=== PATIENT | female | born 1985 | race Caucasian/White ===

== ENCOUNTER → 2022-06-09 10:19 | Outpatient (CLI) | payer OTHER, SELFPAY ==
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
[2022-06-09 13:17] LABS: Basophils % 0.7 % (0.1-2.0); Eosinophils # 0.1 K/mm3 (0.0-0.4); Eosinophils % 1.8 % (0.1-12.0); Hematocrit 43.8 % (37.0-47.0); Hemoglobin 14.7 g/dL (12.2-16.2); Lymphocytes # 1.3 K/mm3 (0.7-4.5); Lymphocytes % 22.7 % (10-50); Mean Corpuscular HGB Conc 33.5 g/dL (31.8-35.4); Mean Corpuscular Hemoglobin 30.6 pg (27.0-31.2); Mean Corpuscular Volume 91.4 fl (81-99); Mean Platelet Volume 8.4 fl (7.4-10.4); Monocytes # 0.2 K/mm3 (0.1-1.0); Monocytes % 2.8 % (1.7-9.3); Platelet Count 262 K/mm3 (142-424); Red Blood Count 4.79 M/mm3 (4.20-5.40); Red Cell Distribution Width 12.4 % (11.5-17.5); White Blood Count 5.5 K/mm3 (4.8-10.8)
[2022-06-09 13:59] LABS: Alanine Aminotransferase 17 U/L (12-78); Albumin Level 4.4 g/dl (3.5-5.0); Albumin/Globulin Ratio 1.7 (1.1-1.8); Alkaline Phosphatase 57 U/L (38-126); Anion Gap 17.1 mEq/L (5-15); Aspartate Amino Transferase 25 U/L (14-36); Bilirubin,Total 0.4 mg/dl (0.2-1.3); Blood Urea Nitrogen 18 mg/dl (7-17); Calcium 9.5 mg/dl (8.4-10.2); Carbon Dioxide 23 mmol/L (22.0-30.0); Chloride 103 mmol/L (98-107); Estimated Glomerular Filt Rate 70 ml/min (>60); GFR (African American) 85 ML/MIN (>60); Globulin 2.6 g/dL (1.3-3.2); Glucose 107 mg/dl (74-100); Potassium 4.1 mmoL/L (3.5-5.1); Sodium 139 mmol/L (136-145)
[2022-06-09 14:30] LABS: Thyroid Stimulating Hormone 0.56 uIU/mL (0.465-4.68)
[2022-06-09 15:15] LABS: Folate > 20.00 ng/mL; Vitamin B12 > 1000 pg/mL (239-931)
== END ==
PROVIDERS: PCP Nurse Practitioner; Visit Provider Nurse Practitioner Family
DX: R51.9 Headache, unspecified (principal); F39 Unspecified mood [affective] disorder; Z87.828 Personal history of other (healed) physical injury and trauma
CPT/HCPCS: 36415; 70551; 72052; 80053; 82607; 82746; 84443; 85025

== ENCOUNTER 2022-06-24 15:30 | Outpatient (RCR) | payer OTHER, SELFPAY ==
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
== END 2022-06-24 15:35 | disposition home or self-care (01) ==
LOC: PT 15:30
PROVIDERS: PCP Nurse Practitioner; Visit Provider Nurse Practitioner Family
DX: R51.9 Headache, unspecified (principal); Z87.828 Personal history of other (healed) physical injury and trauma
CPT/HCPCS: 20560; 97010; 97014; 97035; 97110; 97140; 97163; G0283

== ENCOUNTER 2022-10-12 13:40 | Day surgery (SDC) | payer OTHER, SELFPAY ==
[2022-10-12] VITALS (8 sets, daily range): BP systolic 116–153; BP diastolic 80–101; PULSE 49–75; RESP 15–20; TEMP 36.4–36.9; O2SAT 97–100; BMI 21.7
--- NOTE | 2022-10-12 13:43 | HMH.EDGENADL ---
Discharge Plan Disposition Patient Disposition: Admitted As Inpatient Prescriptions Prescriptions: No Action bupropion HCl [Wellbutrin XL] 300 mg tablet extended release 24 hr 300 mg PO DAILY Clinical Impressions Clinical Impression: Foreign body in foot, Penetrating foot wound Instructions Patient Instructions: DI for Skin Abscess Discharge ED Provider: Mallory Hernandez General Adult HPI General Chief complaint: Skin/Abscess/Foreign Body Stated complaint: FB in foot Time Seen by Provider: 10/12/22 13:43 History of Present Illness HPI narrative: Patient is a 37-year-old female presenting today with a nail that penetrated through her great toe on the left foot. She states that she was walking in a shed and accidentally stepped on the nail which went through her rubber soled shoe and through her foot through and through. Unknown known tetanus status she tried very hard to pull the nail out herself and was unsuccessful. Denies any ongoing bleeding or loss of sensation in that toe. Related Data Home Medications Medication Instructions Recorded Confirmed bupropion HCl 300 mg 24 hr tablet, 300 mg PO DAILY Mood 05/25/22 10/12/22 extended release (Wellbutrin XL) Allergies Allergy/AdvReac Type Severity Reaction Status Date / Time No Known Allergies Allergy Verified 07/28/22 10:30 PFS PFS Disclaimer: The information contained in this section may have been updated after the patient was seen, as this information can be updated by other users. Surgical History H/O tubal ligation Family History Other Cancer FHx: mental illness Heart attack Substance abuse Social History Smoking Status: Current every day smoker alcohol intake: current substance use type: former substance user current occupational status: unemployed Travel in the last 8 weeks: Inside the [place] housing: house marital status: single ROS Obtained: Yes All systems reviewed & no additional complaints except as documented Physical Exam General General appearance: alert Respiratory Respiratory exam: Present normal lung sounds bilaterally and respiratory distress; Absent wheezes, stridor or accessory muscle use Cardiovascular Cardiovascular exam: Present regular rate; Absent irregular rhythm Abdominal Exam Abdominal exam: Present soft; Absent distention Extremities Exam Extremities exam: Present other (Left foot there is a nail that is penetrating through the medial aspect of the proximal phalanx just distal to the MTP joint she is neurovascular intact distal to this the nail is still through a 4 x 4) Neurological Exam Neurological exam: Present alert and oriented X3 Medical Decision Making Nirav Inquiry Pt receiving controlled substance: No Nirav was queried for this patient: No Vital Signs: 10/12/22 13:40 Temperature 98.4 F Temperature Source Oral Pulse Rate [Left] 74 Respiratory Rate 18 Blood Pressure [Right Arm] 153/101 H Blood Pressure Mean [Right Arm] 118 Blood Pressure Source [Right Arm] Automatic Cuff Blood Pressure Position [Right Arm] Sitting 02 Sat by Pulse Oximetry 98 Oxygen Delivery Method Room Air Orders (Tests/Meds): ED MEDICATIONS Generic Name Dose Route Start Last Admin Trade Name Freq PRN Reason Stop Dose Admin Ceftriaxone Sodium 2 gm/ 50 mls @ 100 mls/hr 10/12/22 14:40 Sodium Chloride IV 10/12/22 15:09 ONCE ONE Penicillin G Potassium 5,000,000 unit 10/12/22 14:41 Penicillin G Potassium 5 Mu Vial IV 10/12/22 14:42 ONCE ONE Discontinued Medications Generic Name Dose Route Start Last Admin Trade Name Freq PRN Reason Stop Dose Admin Tetanus/Reduced Diphtheria/Acell Pertussis 0.5 ml 10/12/22 13:48 10/12/22 13:53 Tet/Diphth/Pert-Adult 0.5ml Syringe IM 10/12/22 13:49
--- NOTE | 2022-10-12 13:47 | XR_ITS ---
FINAL REPORT CLINICAL HISTORY: nail penetration injury FINDINGS: LEFT FOOT 3 views were obtained. There is a linear foreign body extending through the medial aspect of the great toe without definite bony involvement. There is no acute fracture. There are multiple artifacts and foreign bodies present. IMPRESSION: Multiple foreign bodies without acute bony abnormality. Reviewed, Interpreted and Dictated by Getachew Young III, MD Transcribed by My Mix Authenticated and [facility]
--- NOTE | 2022-10-12 14:04 | PC.NURSE ---
paged Dr Cullen
--- NOTE | 2022-10-12 14:06 | PC.NURSE ---
placed call for ortho
--- NOTE | 2022-10-12 14:37 | PC.NURSE ---
ELEONORA MORALES speaking with Dr. Cullen
--- NOTE | 2022-10-12 14:40 | PC.NURSE ---
per dr. dorantes to dr. bonner is going to take pt to the OR notified data warehouse architect.
--- NOTE | 2022-10-12 14:56 | PC.NURSE ---
contacted rad to check on status of xray reports, staff states xray are being ready
--- NOTE | 2022-10-12 15:14 | HMH.PHAINT1 ---
Pharmacy Intervention Comments: MEDICATION RECONCILIATION COMPLETED ON PATIENT USING EXTERNAL FILL HISTORY FROM PHARMACY. -WAYLON GONSALVES, AUTUMND
--- NOTE | 2022-10-12 15:35 | PC.NURSE ---
Patient prepped for OR per protocol. Abx infusing. NAD. VSS. Awaiting OR team to arrive.
--- NOTE | 2022-10-12 16:50 | P.OP_ITS ---
Date of procedure: 10/12/22 Pre-op Diagnosis:: Foreign body (mariya nail) left great toe Post-op Diagnosis:: Same Procedure performed:: Foreign body removal left great toe with irrigation Surgeon:: Ole Cullen DO CADMIUM PLATER:: Ritesh Carter Anesthesia: MAC Estimated blood loss (mL): 0 Clinical Note:: 37-year-old female who was walking in a shed subsequently stepped on a piece of wood with to expose nails the nail penetrated the bottom of her foot into her great toe and out the top of her great toe presented to the emergency room. She had made attempts to remove the nail without success. Operative findings:: See dictation Operative note:: Patient then 5 preoperatively left lower extremity marked yes my initials taken the operating room given sedation. Once sedated final operative timeout performed to identify proper patient procedure and extremity. Everyone involved the case agreed. No counter indications beginning. She did receive prophylactic antibiotics with Rocephin penicillin. Once timeout was complete mallet was used to remove the nail from the toe the wood and attached shoe were removed. Once this was complete complete Betadine prepping of the left foot was utilized. Significant irrigation and Betadine at the entrance and exit wound of the nail. Given the ease of removal of the nail was evident that did not penetrate the bone. No significant bleeding following removal of the nail. Repeat Betadine irrigation. Followed by saline irrigation of the wound. Sterile dressing was placed patient waken sedation taken recovery in stable condition. Condition: stable Disposition: PACU Complications:: None apparent
[2022-10-12 17:41] LABS: Basophils # 0.1 K/mm3 (0-0.2); Basophils % 1.3 % (0.1-2.0); Eosinophils # 0.2 K/mm3 (0.0-0.4); Hematocrit 42.6 % (37.0-47.0); Hemoglobin 14.4 g/dL (12.2-16.2); Lymphocytes # 1.8 K/mm3 (0.7-4.5); Lymphocytes % 29.6 % (10-50); Mean Corpuscular HGB Conc 33.9 g/dL (31.8-35.4); Mean Corpuscular Hemoglobin 31.8 pg (27.0-31.2); Mean Platelet Volume 8.4 fl (7.4-10.4); Monocytes # 0.2 K/mm3 (0.1-1.0); Monocytes % 2.9 % (1.7-9.3); Neutrophils # 3.8 K/mm3 (1.8-7.8); Neutrophils % 63.2 % (37.0-80.0); Platelet Count 253 K/mm3 (142-424); Red Blood Count 4.53 M/mm3 (4.20-5.40); Red Cell Distribution Width 12.4 % (11.5-17.5)
[2022-10-12 17:42] LABS: Chloride 103 mmol/L (98-107); Potassium 3.8 mmoL/L (3.5-5.1); Sodium 137 mmol/L (136-145)
[2022-10-12 17:45] LABS: Anion Gap 11.8 mEq/L (5-15); Blood Urea Nitrogen 13 mg/dl (7-17); Carbon Dioxide 26 mmol/L (22.0-30.0); Creatinine Clearance Estimated 92 mL/min (50-200); Estimated Glomerular Filt Rate 80 ml/min (>60); GFR (African American) 97 ML/MIN (>60)
[2022-10-12 17:46] LABS: Calcium 8.4 mg/dl (8.4-10.2); Glucose 89 mg/dl (74-100)
[2022-10-12 18:05] LABS: HCG Qualitative, Serum Negative (Negative)
--- NOTE | 2022-10-12 18:45 | P.PN_ITS ---
[facility] Disclaimer: The information contained in this section may have been updated after the patient was seen, as this information can be updated by other users. Surgical History H/O tubal ligation Family History Other Cancer FHx: mental illness Heart attack Substance abuse Social History Smoking Status: Current every day smoker alcohol intake: current substance use type: former substance user current occupational status: unemployed Travel in the last 8 weeks: Inside the [place] housing: house marital status: single [facility] Anesthesia Checklist Patient Identification Patient Identification: Verbal (Name & ) Structural Data Admitted From: Emergency Dept Planned Operative Procedure/s: removal nail from foot NPO Status Verified Time NPO: 09:00 Airway Assessment C-Spine Mobility Assessed: Yes TMJ Mobility Assessed: Yes Dentition: Good Dentition Neurological Assessment Level of Consciousness: Awake, Alert and Appropriate Anesthesia Plan Anesthesia Risk discussed: Yes Anesthesia Plan: Verified ASA Class: II Anesthesia Type: MAC
== END 2022-10-12 20:25 | disposition home or self-care (01) ==
LOC: ER 14:42 → SDC 16:14
PROVIDERS: Emergency Provider Student in an Organized Health Care Education/Training Program; Visit Provider Orthopaedic Surgery
PROC: (CPT 28192; principal; 2022-10-12 17:00)
DX: S91.142A Puncture wound with foreign body of left great toe without damage to nail, initial encounter (principal); Y92.015 Private garage of single-family (private) house as the place of occurrence of the external cause; W45.0XXA Nail entering through skin, initial encounter; Z23 Encounter for immunization
CPT/HCPCS: 28192; 36415; 73620; 80048; 84703; 85025; 90715; 96374; 99285; J0696

== ENCOUNTER 2023-04-13 17:21 | Outpatient (RCR) | payer OTHER, SELFPAY ==
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
== END 2023-04-13 17:25 | disposition home or self-care (01) ==
LOC: PT 17:21
PROVIDERS: PCP Physician Assistant; Visit Provider Nurse Practitioner Family
DX: R51.9 Headache, unspecified (principal)
CPT/HCPCS: 97163